=== PATIENT | male | born 1980 | race Caucasian/White ===

== ENCOUNTER 2022-08-02 07:50 | Outpatient (CLI) | payer BC ==
[2022-08-02] MEDS ORDERED: Iopamidol 370 76% 100 ML VIAL ONE (10:14)
== END 2022-08-02 07:51 | disposition home or self-care (01) ==
LOC: CT 07:50
PROVIDERS: ATTEND Family Medicine
DX: R35.0 Frequency of micturition (principal); N32.89 Other specified disorders of bladder; K57.30 Diverticulosis of large intestine without perforation or abscess without bleeding; Z90.49 Acquired absence of other specified parts of digestive tract
CPT/HCPCS: 74178